=== PATIENT | female | born 1955 ===

== ENCOUNTER 2018-11-03 09:25 | Emergency (ER) | payer OTHER ==
[2018-11-03 09:36] VITALS: BMI 23.7
[2018-11-03 09:37] VITALS: BP 154/83; PULSE 67; RESP 18; TEMP 98.4; O2SAT 98
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
== END 2018-11-03 14:05 | disposition home or self-care (01) ==
LOC: H.ER 09:25
DX: S13.4XXA Sprain of ligaments of cervical spine, initial encounter (principal); I10 Essential (primary) hypertension; V73.6XXA Passenger on bus injured in collision with car, pick-up truck or van in traffic accident, initial encounter